=== PATIENT | male | born 1955 | race Caucasian/White ===

== ENCOUNTER → 2024-06-17 | Outpatient (CLI) | payer MEDICARE ==
[2024-06-17 09:23] LABS: BASO # 0.03 K/mm3 (0.02-0.10); EOS % 4.7 % (0.0-4.0); HEMATOCRIT 41.4 % (42.0-52.0); HEMOGLOBIN 13.7 g/dL (13.5-18.0); LYMPH# 1.94 K/mm3 (1.50-4.00); MEAN CELL VOLUME 90 fl (78-100); MEAN CORPUSCULAR HEMOGLOBIN 30 pg (27-31); MEAN CORPUSCULAR HGB CONC 33 g/dL (33-37); MEAN PLATELET VOLUME 8.6 fl (7.4-10.4); MONO # 0.58 K/mm3 (0.20-0.80); NEU # 3.52 K/mm3 (1.40-6.50); PLATELET COUNT 301 K/mm3 (130-400); RED BLOOD COUNT 4.62 M/mm3 (4.20-5.60); WHITE BLOOD COUNT 6.4 K/mm3 (4.8-10.8)
[2024-06-17 09:26] LABS: ALBUMIN 4.5 g/dL (3.4-4.8)
[2024-06-17 09:27] LABS: CALCIUM 9.8 mg/dL (8.3-10.5)
[2024-06-17 09:29] LABS: TOTAL PROTEIN 7.7 g/dL (6.2-8.1)
[2024-06-17 09:31] LABS: TOTAL BILIRUBIN 0.7 mg/dL (0.2-1.2)
[2024-06-17 09:36] LABS: MAGNESIUM 2.34 mg/dL (1.60-2.60)
[2024-06-17 22:51] LABS: TESTOSTERONE 692 ng/dL (221-716)
[2024-06-17 22:55] LABS: HEPATITIS C VIRUS ANTIBODY Negative (Nonreactiv)
== END ==
LOC: LAB 08:35
PROVIDERS: Internal Medicine
DX: Z12.11 Encounter for screening for malignant neoplasm of colon (principal); Z11.59 Encounter for screening for other viral diseases; E78.2 Mixed hyperlipidemia; F52.21 Male erectile disorder; R97.8 Other abnormal tumor markers

== ENCOUNTER → 2024-06-23 | Outpatient (CLI) | payer MEDICARE | LOC: LAB 09:16 | DX: Z12.11 Encounter for screening for malignant neoplasm of colon (principal) ==

== ENCOUNTER → 2024-12-17 | Outpatient (CLI) | payer MEDICARE ==
[2024-12-17 10:17] LABS: BASO # 0.03 K/mm3 (0.02-0.10); EOS # 0.14 K/mm3 (0.04-0.40); EOS % 1.7 % (0.0-4.0); HEMATOCRIT 40.4 % (42.0-52.0); LYMPH# 1.73 K/mm3 (1.50-4.00); MEAN CELL VOLUME 89 fl (78-100); MEAN CORPUSCULAR HEMOGLOBIN 29 pg (27-31); MEAN CORPUSCULAR HGB CONC 32 g/dL (33-37); MEAN PLATELET VOLUME 8.3 fl (7.4-10.4); MONO # 0.62 K/mm3 (0.20-0.80); NEU # 5.55 K/mm3 (1.40-6.50); PLATELET COUNT 352 K/mm3 (130-400); RED BLOOD COUNT 4.54 M/mm3 (4.20-5.60); WHITE BLOOD COUNT 8.1 K/mm3 (4.8-10.8)
[2024-12-17 10:25] LABS: ALBUMIN 4.2 g/dL (3.4-4.8)
[2024-12-17 10:26] LABS: CALCIUM 9.7 mg/dL (8.3-10.5)
[2024-12-17 10:27] LABS: TOTAL PROTEIN 8.8 g/dL (6.2-8.1)
[2024-12-17 10:29] LABS: TOTAL BILIRUBIN 0.4 mg/dL (0.2-1.2)
[2024-12-17 10:34] LABS: MAGNESIUM 2.06 mg/dL (1.60-2.60)
== END ==
LOC: LAB 10:00
PROVIDERS: Internal Medicine
DX: E78.2 Mixed hyperlipidemia (principal)